=== PATIENT | female | born 1990 | race Caucasian/White ===

== ENCOUNTER → 2016-10-20 | Outpatient (CLI) | payer OTHER | LOC: OD 09:54 | PROVIDERS: ATTEND Nurse Practitioner Primary Care | DX: O20.0 Threatened abortion (principal) | CPT/HCPCS: 36415; 84702 ==

== ENCOUNTER → 2016-10-25 | Outpatient (CLI) | payer OTHER | LOC: OD 10:02 | PROVIDERS: ATTEND Nurse Practitioner Primary Care | DX: O20.0 Threatened abortion (principal) | CPT/HCPCS: 36415; 84702 ==

== ENCOUNTER 2017-06-07 03:02 | Outpatient (CLI) | payer OTHER ==
[2017-06-07] MEDS ORDERED: ACETAMINOPHEN WITH CODEINE #3 TABLET PO ONE (03:55)
[2017-06-07] MEDS ORDERED: HYDROXYZINE PAMOATE 50 MG CAPSULE PO ONE (03:55)
[2017-06-07] MEDS ORDERED: ACETAMINOPHEN WITH CODEINE #3 TABLET ONE (03:57)
[2017-06-07] MEDS ORDERED: HYDROXYZINE PAMOATE 50 MG CAPSULE ONE (03:57)
[2017-06-07 04:18] LABS: APPEARANCE,URINE SLIGHTLY-CLOUDY; BILIRUBIN,URINE NEGATIVE (NEGATIVE); GLUCOSE, URINE NEGATIVE (NEGATIVE); KETONES,URINE NEGATIVE (NEGATIVE); LEUKOCYTE ESTERASE,URINE MODERATE (NEGATIVE); NITRITE,URINE NEGATIVE (NEGATIVE); PROTEIN,URINE NEGATIVE (NEGATIVE); URINE SPECIFIC GRAVITY 1.011; UROBILINOGEN,URINE NEGATIVE mg/dL (<2.0)
[2017-06-07 04:43] LABS: URINE BARBITURATES SCREEN NEGATIVE; URINE METHADONE SCREEN NEGATIVE; URINE OPIATES LOW NEGATIVE; URINE PHENCYCLIDINE SCREEN NEGATIVE
== END 2017-06-07 04:43 | disposition home or self-care (01) ==
LOC: LC 03:02
PROVIDERS: ATTEND Student in an Organized Health Care Education/Training Program
PROC: 4A1HXCZ Monitoring of Products of Conception, Cardiac Rate, External Approach (ICD-10-PCS; principal; 2017-06-07)
DX: O26.893 Other specified pregnancy related conditions, third trimester (principal); M54.9 Dorsalgia, unspecified; Z3A.37 37 weeks gestation of pregnancy
CPT/HCPCS: 59025; 80307; 81005; 87086

== ENCOUNTER 2017-06-28 02:05 | Inpatient (IN) | payer OTHER ==
[2017-06-28] MEDS ORDERED: RINGERS SOLUTION,LACTATED 1,000 ML IV PRN (02:43)
[2017-06-28] MEDS ORDERED: RINGERS SOLUTION,LACTATED 1,000 ML IV ONE (02:43)
[2017-06-28 02:45] LABS: APPEARANCE,URINE SLIGHTLY-CLOUDY; BILIRUBIN,URINE NEGATIVE (NEGATIVE); GLUCOSE, URINE NEGATIVE (NEGATIVE); KETONES,URINE NEGATIVE (NEGATIVE); LEUKOCYTE ESTERASE,URINE TRACE (NEGATIVE); NITRITE,URINE NEGATIVE (NEGATIVE); PROTEIN,URINE 30 mg/dL (NEGATIVE); URINE SPECIFIC GRAVITY 1.014
[2017-06-28 02:59] LABS: URINE BARBITURATES SCREEN NEGATIVE; URINE METHADONE SCREEN NEGATIVE; URINE OPIATES LOW NEGATIVE; URINE PHENCYCLIDINE SCREEN NEGATIVE
[2017-06-28 03:16] LABS: ABSOLUTE EOSINOPHILS # (AUTO) 0.1 10^3/uL (0.0-0.6); ABSOLUTE LYMPHOCYTES (AUTO) 1.7 10^3/uL (0.5-4.7); ABSOLUTE MONOCYTES (AUTO) 0.9 10^3/uL (0.1-1.4); ABSOLUTE NEUT (AUTO) 6.7 10^3/uL (1.7-8.2); BASOPHILS % (AUTO) 0.2 % (0-2); EOSINOPHILS % (AUTO) 1.3 % (0-6); HEMATOCRIT 31.9 % (36.0-47.0); HEMOGLOBIN 11.1 g/dL (12.0-15.5); HGB HCT DIFFERENCE 1.4; LYMPHOCYTES % (AUTO) 17.6 % (13-45); MEAN CORPUSCULAR HEMOGLOBIN 30.2 pg (27.0-33.4); MEAN CORPUSCULAR HGB CONC 34.8 g/dL (32.0-36.0); MEAN CORPUSCULAR VOLUME 87 fl (80-97); MONOCYTES % (AUTO) 9.8 % (3-13); RED BLOOD COUNT 3.68 10^6/uL (3.72-5.28); RED CELL DISTRIBUTION WIDTH 14.8 % (11.5-14.0); SEGMENTED NEUTROPHILS % (AUTO) 71.1 % (42-78); WHITE BLOOD COUNT 9.4 10^3/uL (4.0-10.5)
[2017-06-28] MEDS ORDERED: OXYTOCIN/NORMAL SALINE 20 UNIT/1,000 ML RTUINJ ONE ×2 (05:47→10:27)
[2017-06-28] MEDS ORDERED: OXYTOCIN/NORMAL SALINE 20 UNIT/1,000 ML RTUINJ IV PRN ×2 (05:57→13:11)
--- NOTE | 2017-06-28 08:25 | L&D Progress Notes ---
PROGRESS NOTES Datetime Report Generated by CPN: 06/28/2017 08:24 PROGRESS NOTE Impression: Normal Progression of Labor Plan: Continue Present Management; Augmentation Informed Consent Obtained: Vaginal Delivery Comment: Cat 1 strip, uc's q 2-3 x 60 sec, requesting epidural SIGNATURE SIGNATURE: [id number] SIGNATURE: [id number] Assignment: Hattie Garcia MD Signature: with User ID: [email or web address] : with User ID: [email or web address]
[2017-06-28] MEDS ORDERED: BUPIVACAINE HCL 0.25 % INJ/PF (2.5 MG/1 ML) 30 ML VIAL ONE (08:55)
[2017-06-28] MEDS ORDERED: EPHEDRINE SULFATE INJ 50 MG/1 ML AMPULE ONE (08:55)
[2017-06-28] MEDS ORDERED: FENTANYL/BUPIVACAINE/NS/PF 200 MCG/100 ML RTUINJ EPI ONE (08:55)
[2017-06-28] MEDS ORDERED: MISOPROSTOL 0.2 MG TABLET ONE (10:27)
[2017-06-28] MEDS ORDERED: LIDOCAINE 1% INJ-PF (10 MG/ML) 30 ML SDV ONE (10:27)
--- NOTE | 2017-06-28 11:50 | L&D Progress Notes ---
PROGRESS NOTES Datetime Report Generated by CPN: 06/28/2017 11:50 PROGRESS NOTE Comment: Pt pushing, Dr. Jose in room with pt. plans to deliver her, variable decelerations with pushing, Dr. Jose at [facility] MEMBRANES Membranes: Ruptured Amniotic Fluid Color: Clear FETUS A : 40.3 Presentation: Vertex FETUS C SIGNATURE: [id number] Assignment: Hattie Garcia MD Signature: with User ID: [email or web address] : with User ID: [email or web address]
[2017-06-28] MEDS ORDERED: PROMETHAZINE HCL 25 MG SUPP.RECT PR PRN (13:11)
[2017-06-28] MEDS ORDERED: MAGNESIUM HYDROXIDE SUSP 30 ML UDCUP PO PRN (13:11)
[2017-06-28] MEDS ORDERED: DIPHENHYDRAMINE HCL 25 MG CAPSULE PO PRN (13:11)
[2017-06-28] MEDS ORDERED: PSEUDOEPHEDRINE HCL 30 MG TABLET PO PRN (13:11)
[2017-06-28] MEDS ORDERED: NA PHOS,M-B/NA PHOS,DI-BA (ADULT) 133 ML ENEMA PR PRN (13:11)
[2017-06-28] MEDS ORDERED: BENZOCAINE/MENTHOL AEROSOL SPRAY 56 ML TOP PRN (13:11)
[2017-06-28] MEDS ORDERED: PROMETHAZINE HCL INJ 25 MG/1 ML VIAL IV PRN (13:11)
[2017-06-28] MEDS ORDERED: ZOLPIDEM TARTRATE 5 MG TABLET PO PRN (13:11)
[2017-06-28] MEDS ORDERED: MEASLES,MUMPS&RUBELLA VACC/PF 0.5 ML VIAL SUBCUT PRN (13:11)
[2017-06-28] MEDS ORDERED: ACETAMINOPHEN WITH CODEINE #3 TABLET PO PRN ×2 (13:11)
[2017-06-28] MEDS ORDERED: DIPH/PERTUSS(ACELL)/TETANUS VAC/PF 0.5 ML SYR (>=10YO) IM PRN (13:11)
[2017-06-28] MEDS ORDERED: GLYCERIN/WITCH HAZEL LEAF 1 EACH MED..PAD TP PRN (13:11)
[2017-06-28] MEDS ORDERED: ACETAMINOPHEN 650 MG SUPP.RECT PR PRN (13:11)
[2017-06-28] MEDS ORDERED: DIBUCAINE 1% OINTMENT 28 GM TP PRN (13:11)
[2017-06-28] MEDS ORDERED: PROMETHAZINE HCL 25 MG TABLET PO PRN (13:11)
--- NOTE | 2017-06-28 15:05 | Admission Physical ---
Datetime Report Generated by CPN: 06/28/2017 15:05 CURRENT ADMISSION Hx Assessment: The History has been Reviewed and is Current Chief Complaint: Suspected Ruptured Membranes Indication for Induction: Not Applicable Indication for Induction: Postterm, Intrauterine ; No Active Labor; Ruptured Membranes Admit Plan: Admit to Unit; Initiate Labor Augmentation Protocol ALLERGIES Medication Allergies: No Medication Allergies: No Known Allergies (06/28/2017) Medication Allergies: No Known Allergies (10/09/2014) Latex: No Latex Allergies Food Allergies: none Environmental Allergies: none OBSTETRICAL HISTORY EDC: 06/23/2017 00:00 : 1 Para: 0 Term: 0 : 0 SAB: 0 IAB: 0 Ectopic: 0 Livin Cesareans: 0 VBACs: 0 Multiple Births: 0 Gestational Diabetes: No Rh Sensitization: No Incompetent Cervix: No CRISTIAN: No Infertility: No ART Treatment: No Uterine Anomaly: No IUGR: No Hx Previous C/S: No Macrosomia: No Hx Loss/Stillborn: No PIH: No Hx : No Placenta Previa/Abruption: No Depression/PP Depression: No PTL/PROM: No Post Hemorrhage: No Current Procedures: Ultrasound; NST Obstetrical History Comments: G1- Current SEE RECORDS Alcohol: No Marijuana : No Cocaine: No Other Illicit Drugs: No Cigarettes: Never Smoker. 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 Surgery: No Heart Disease: No Hosp/Surgery: Yes Autoimmune Disorder: No Anesthetic Complications: No Kidney Disease: No Abnormal Pap Smear: No Neuro/Epilepsy: No Psychiatric Disorders: No Other Medical Diseases: No Hepatitis/Liver Disease: No Significant Family History: No Varicosities/Phlebitis: No Trauma/Violence : No Thyroid Dysfunction: No Medical History Comments: 2013 knee surgery INFECTIOUS HISTORY Gonorrhea: No Genital Herpes: No Chlamydia: No Tuberculosis: No Syphilis: No Hepatitis: No HIV/AIDS Exposure: No Rash or Viral Illness: No HPV: No PHYSICAL EXAM General: Normal HEENT: Deferred Neurologic: Normal Thyroid: Normal Heart: Normal Lungs: Normal Breast: Deferred Back: Normal Abdomen: Normal Genitourinary Exam: Normal Extremities: Normal DTRs: Normal Pelvic Type: Adequate Physical Exam Comments: GBS neg Vital Signs: Reviewed MEMBRANES Membranes: Ruptured Amniotic Fluid Color: Clear FETUS A EGA: 40.5 Monitoring: External US Presentation: Vertex Admit Comment: Admitted to with SROM, A +, vs stable, amnisure +, Pitocin started, Cat 1 strip on admission PLANS FOR LABOR AND DELIVERY Labor and Delivery: None Pain Management: Epidural Feeding Preference: Breast Benefit of Breast Feed Discussed: Yes Circumcision: N/A INFORMED CONSENT Informed Consent Obtained: Vaginal Delivery Assignment: Hattie Garcia MD Signature: with User ID: [email or web address] : with User ID: [email or web address]
[2017-06-28] MEDS: IBUPROFEN 800 MG TABLET PO SCH ×2 (15:40→22:06)
[2017-06-28] MEDS: FERROUS SULFATE 325 MG TABLET PO SCH (17:54)
[2017-06-28] MEDS: DOCUSATE SODIUM 100 MG CAPSULE PO SCH (17:55)
[2017-06-28] MEDS: FAMOTIDINE 20 MG TABLET PO SCH (22:06)
[2017-06-29] MEDS: IBUPROFEN 800 MG TABLET PO SCH ×3 (06:00→22:18)
[2017-06-29 07:35] LABS: HEMATOCRIT 28.4 % (36.0-47.0); HEMOGLOBIN 9.7 g/dL (12.0-15.5); HGB HCT DIFFERENCE 0.7; MEAN CORPUSCULAR HGB CONC 34.2 g/dL (32.0-36.0); MEAN CORPUSCULAR VOLUME 88 fl (80-97); RED BLOOD COUNT 3.24 10^6/uL (3.72-5.28); RED CELL DISTRIBUTION WIDTH 14.7 % (11.5-14.0)
--- NOTE | 2017-06-29 08:09 | Delivery Summary ---
Del Sum A-C Datetime Report Generated by CPN: 06/29/2017 08:09 DELIVERY PERSONNEL DELIVERY PERSONNEL: [id number] Delivery Doctor:: Hattie Garcia MD Labor and Delivery Nurse:: Hortensia Gray RN Labor and Delivery Nurse:: Kylie Díaz RN Nursery Nurse:: Shnu ACOSTA Cattyman/CORPORATE ADMINISTRATIVE ASSISTANT: Maryanne Marsh, CHRONIC MANAGER Additional Personnel: : Teresa Gibbs RN MATERNAL INFORMATION Delivery Anesthesia: Epidural Medications After Delivery: Pitocin Bolus-Please Comment; Pitocin Drip 20 Units/1000ml NSS Estimated Blood Loss (ml): 200 Maternal Complications: None LABOR SUMMARY EDC: 06/23/2017 00:00 No. Babies in Womb: 1 Attempted: No Labor Anesthesia: Epidural LABOR INFORMATION Reason for Induction: Premature Rupture of Membranes Onset of Labor: 06/28/2017 06:23 Complete Dilatation: 06/28/2017 11:00 Oxytocin: Augmentation Group B Beta Strep: Negative Steroids Given: None Reason Steroids Not Administered: Not Applicable MEMBRANES Membranes Rupture Method: Spontaneous Rupture of Membranes: 06/28/2017 01:30 Length of Rupture (hr): 11.15 Amniotic Fluid Color: Moderate Meconium Amniotic Fluid Color: Clear Amniotic Fluid Color: Clear Amniotic Fluid Amount: Moderate Amniotic Fluid Odor: Normal STAGES OF LABOR Stage 1 hr: 4 Stage 1 min: 37 Stage 2 hr: 1 Stage 2 min: 39 Stage 3 hr: 0 Stage 3 min: 6 Total Time in Labor hr: 6 Total Time in Labor min: 22 VAGINAL DELIVERY Episiotomy: None Laceration #1: Perineal; Vaginal Laceration Extension #1: Second Degree Laceration #2: Vaginal Laceration Extension #2: Second Degree Laceration #3: Vaginal Laceration Extension #3: Second Degree Laceration Repair: Yes Laceration Repair Note: all repaired in normal fashion with 2-0 chromic Sponge Count Correct: N/A Sharps Count Correct: N/A CSECTION DELIVERY Primary Indication: N/A Secondary Indication: N/A CSection Incidence: N/A Labor: N/A Elective: N/A CSection Incision: N/A BABY A INFORMATION Infant Delivery Date/Time: 06/28/2017 12:39 Method of Delivery: Vaginal Born in Route : No : N/A Forceps: N/A Vacuum Extraction: Successful Shoulder Dystocia : No ASSISTED DELIVERY BABY A Indication for Assisted Delivery: nonreassuring heart tones Catheter Prior to Procedure: No Station Vacuum/Forcep Apply: +3 Position Vacuum/Forcep Apply: Right Occipital Anterior Vacuum Number of Pulls: 1 Vacuum Number of PopOffs: 1 Vacuum Maximum Pressure Obtained: 550 Reduce Pressure btwn Ctx: Yes Vacuum Enterprise Mobility Architect: Kiwi Total Time Vacuum Applied: 10seconds Vacuum/Forceps Comment: Kiwi applied at 1239. PRESENTATION/POSITION BABY A Presentation: Cephalic Cephalic Presentation: Vertex Vertex Position: Right Occipital Anterior Breech Presentation: N/A PLACENTA INFORMATION BABY A Placenta Delivery Time : 06/28/2017 12:45 Placenta Method of Delivery: Spontaneous Placenta Status: Delivered SCORES BABY A Heart Rate 1 min: >100 bpm Resp Effort 1 min: Good Cry Reflex Irritability 1 min: Cough or Sneeze or Pulls Away Muscle Tone 1 min: Active Motion Color 1 min: Blue/Pale Resuscitation Effort 1 min: Tactile Stimulation SCORE 1 MIN: 8 Heart Rate 5 min: >100 bpm Resp Effort 5 min: Good Cry Reflex Irritability 5 min: Cough or Sneeze or Pulls Away Muscle Tone 5 min: Active Motion Color 5 min: Body [place], Extremities Blue Resuscitation Effort 5 min: Tactile Stimulation SCORE 5 MIN: 9 INFORMATION BABY A Gestational Age at Delivery: 40.5 Gestational Status: Full Term- 39- 40.6 Weeks Infant Outcome : Liveborn Infant Condition : Stable Infant Sex: Female IDENTIFICATION BABY A Verification Date/Time: 06/28/2017 12:51 ID Band Number: [id number] Mother's Name Verified: Yes RN Verifying : Emmy Moralesjai ANGELO Additional Verifying Personnel: Susy Gray RN WEIGHT/LENGTH BABY A Infant Birthweight (gm): 3630 Weight (lb): 8 Infant Weight (oz): 0 Length (in): 20.50 Infant Length (cm): 52.07 CORD INFORMATION BABY A No. Cord Vessels: 3 Nuchal Cord : Around Neck x1, Loose Cord Blood Taken: Yes-For Storage (Mom's Blood type +) Infant Suction: Mouth ASSESSMENT BABY A Complications: Multiple Variable Decels Physical Findings at Delivery: Molding of the Head; Other Physical Findings- Other: right compound hand Infant Respirations: Appears Normal Skin to Skin: Yes Skin to Skin: Yes Skin to Skin: Yes Skin to Skin: Yes Skin to Skin: Yes Skin to Skin: Yes Skin to Skin: Yes Skin to Skin: Yes Skin to Skin Time (min): 60 Skin to Skin Time (min): 60 Underwater Hunter/ALS Called : No Infant Care By: Rosalio Gibbs RN Transferred To: Remains with Mother BABY B INFORMATION : N/A SIGNATURES Signature: with User ID: [email or web address]
--- NOTE | 2017-06-29 09:28 | PDOC PROGRESS REPORT ---
Subjective-OB Subjective: Post Delivery Day: 27 year old. Denies any needs at this time. Pt doing well, no complaints. She reports light bleeding, voiding without difficulty. Physical Exam (OB) Vital Signs: Temp Pulse Resp BP Pulse Ox 98.0 F 91 14 129/72 H 98 06/29/17 07:39 06/29/17 07:39 06/29/17 07:39 06/29/17 07:39 06/29/17 07:39 Intake & Output 06/28/17 06/29/17 06/30/17 06:59 06:59 06:59 Weight 117.95 kg - PIH/Pre-Eclampsia Clonus: Negative Headache: Absent Epigastric Pain: No Visual Changes: No - Lochia Lochia Amount: Small 10-25 ml Lochia Color: Rubra/Red - Abdomen Description: Tender, Soft, Round Hernia Present: No Fundal Description: Firm Fundal Height: u/u - u/2 Objective-Diagnostic Laboratory: 06/29/17 07:05 06/29/17 07:05 WBC 11.0 H RBC 3.24 L Hgb 9.7 L Hct 28.4 L MCV 88 MCH 30.0 MCHC 34.2 RDW 14.7 H Plt Count 132 L Assessment and Plan(PN) - Assessment and Plan (1) Vaginal delivery Is this a current diagnosis for this admission?: Yes - Time Spent with Patient Time with patient: Less than 15 minutes Medications reviewed and adjusted accordingly: Yes - Disposition Anticipated Discharge: Home Within: within 24 hours
[2017-06-29] MEDS: FAMOTIDINE 20 MG TABLET PO SCH ×2 (12:32→22:18)
[2017-06-29] MEDS: FERROUS SULFATE 325 MG TABLET PO SCH ×2 (12:32→18:32)
[2017-06-29] MEDS: DOCUSATE SODIUM 100 MG CAPSULE PO SCH ×2 (12:32→18:32)
[2017-06-29] MEDS: PRENATAL VITAMIN W DHA CAPSULE PO SCH (12:33)
[2017-06-29] MEDS: SENNOSIDES/DOCUSATE 8.6-50 MG 1 EACH TABLET PO SCH (12:33)
[2017-06-29] MEDS ORDERED: IBUPROFEN 800 MG TABLET ONE (15:35)
[2017-06-30] MEDS: IBUPROFEN 800 MG TABLET PO SCH (05:33)
[2017-06-30 08:25] VITALS: BP 99/79
--- NOTE | 2017-06-30 08:34 | PDOC PROGRESS REPORT ---
Subjective-OB Subjective: Post Delivery Day: 27 year old. Denies any needs at this time. Ready to go home. Physical Exam (OB) Vital Signs: Temp Pulse Resp BP Pulse Ox 97.8 F 82 16 99/79 L 100 06/30/17 07:32 06/30/17 07:32 06/30/17 07:32 06/30/17 07:32 06/30/17 07:32 - PIH/Pre-Eclampsia Clonus: Negative Headache: Absent Epigastric Pain: No Visual Changes: No - Lochia Lochia Amount: Small 10-25 ml Lochia Color: Rubra/Red - Abdomen Description: Tender, Soft Hernia Present: No Bowel Sounds: Normoactive Flatus Presence: Present Stool: No Fundal Description: Firm, Midline Fundal Height: u/u - u/2 Objective-Diagnostic Laboratory: 06/29/17 07:05 Assessment and Plan(PN) - Time Spent with Patient Medications reviewed and adjusted accordingly: Yes - Disposition Anticipated Discharge: Home
--- NOTE | 2017-06-30 08:42 | PDOC DISCHARGE SUMMARY ---
Final Diagnosis Discharge Date: 06/30/17 - Final Diagnosis (1) Is this a current diagnosis for this admission?: Yes (2) Vaginal delivery Is this a current diagnosis for this admission?: Yes (3) Vitamin D deficiency Is this a current diagnosis for this admission?: Yes Discharge Data - Discharge Medication Home Medications: Ergocalciferol (Vitamin D2) [Vitamin D] 400 unit PO DAILY MDD 1 tab 06/07/17 Pnv No.103/Folic/Om3s/Fish Oil [ Gummies] 1 each PO DAILY MDD 1 tab Docusate Sodium [Colace 100 mg Capsule] 100 mg PO BID #30 capsule 06/30/17 Ferrous Sulfate [Feosol 325 mg Tablet] 325 mg PO BID #60 tablet 06/30/17 Gestational Age: 40.5 wks Reason(s) for Admission: PROM Procedures: Ultrasound Intrapartum Procedure(s): Spontaneous Vaginal Delivery Complication(s): Laceration-Vaginal, Laceration-Perineal Laceration-Degree: 2nd - Mellette Data Baby 1 Female at 1 minute: 8 at 5 minutes: 9 Weight: 3.629 kg Home with Mother: Yes Complications: No - Diagnosis Test Laboratory: Temp Pulse Resp BP Pulse Ox 97.8 F 82 16 99/79 L 100 06/30/17 07:32 06/30/17 07:32 06/30/17 07:32 06/30/17 07:32 06/30/17 07:32 06/28/17 06/28/17 06/29/17 02:29 03:02 07:05 RBC 3.68 L 3.24 L Hgb 11.1 L 9.7 L Hct 31.9 L 28.4 L Urine Opiates Screen NEGATIVE - Discharge information/Instructions Discharge Activity: Activity As Tolerated, Balance Activity w/Rest, Pelvic Rest , Slowly Increase Activity, No tub bath Discharge Diet: Regular Disposition: HOME, SELF-CARE Follow up with: [facility] in: 4, Weeks
[2017-06-30] MEDS: SENNOSIDES/DOCUSATE 8.6-50 MG 1 EACH TABLET PO SCH (09:52)
[2017-06-30] MEDS: FERROUS SULFATE 325 MG TABLET PO SCH (09:52)
[2017-06-30] MEDS: DOCUSATE SODIUM 100 MG CAPSULE PO SCH (09:52)
[2017-06-30] MEDS: FAMOTIDINE 20 MG TABLET PO SCH (09:53)
[2017-06-30] MEDS: PRENATAL VITAMIN W DHA CAPSULE PO SCH (09:53)
== END 2017-06-30 12:12 | disposition home or self-care (01) | DRG 775 ==
LOC: LC 02:05 → LR 02:30 → 2S 15:02
PROVIDERS: ADMIT Obstetrics & Gynecology; ATTEND Obstetrics & Gynecology
PROC: 10D07Z6 Extraction of Products of Conception, Vacuum, Via Natural or Artificial Opening (ICD-10-PCS; principal; 2017-06-28)
PROC: 0KQM0ZZ Repair Perineum Muscle, Open Approach (ICD-10-PCS; 2017-06-28)
PROC: 4A1HXCZ Monitoring of Products of Conception, Cardiac Rate, External Approach (ICD-10-PCS; 2017-06-28)
DX: O48.0 Post-term pregnancy (principal); O76 Abnormality in fetal heart rate and rhythm complicating labor and delivery; O32.6XX0 Maternal care for compound presentation, not applicable or unspecified; O70.1 Second degree perineal laceration during delivery; O42.02 Full-term premature rupture of membranes, onset of labor within 24 hours of rupture; O99.284 Endocrine, nutritional and metabolic diseases complicating childbirth; E55.9 Vitamin D deficiency, unspecified; O77.0 Labor and delivery complicated by meconium in amniotic fluid; Z3A.40 40 weeks gestation of pregnancy; Z37.0 Single live birth
CPT/HCPCS: 36415; 80307; 81005; 85025; 85027; 86592; 86850; 86900; 86901; J2590; J3490

== ENCOUNTER → 2018-07-31 | Outpatient (CLI) | payer OTHER | LOC: OD 14:21 | PROVIDERS: ATTEND Nurse Practitioner Primary Care | DX: N91.2 Amenorrhea, unspecified (principal) | CPT/HCPCS: 36415; 84702 ==

== ENCOUNTER 2019-09-09 16:00 | Outpatient (CLI) | payer MEDICAID ==
[2019-09-09 16:51] LABS: APPEARANCE,URINE SLIGHTLY-CLOUDY; BILIRUBIN,URINE NEGATIVE (NEGATIVE); COLOR,URINE YELLOW; GLUCOSE, URINE NEGATIVE (NEGATIVE); KETONES,URINE 20 mg/dL (NEGATIVE); LEUKOCYTE ESTERASE,URINE TRACE (NEGATIVE); NITRITE,URINE NEGATIVE (NEGATIVE); PROTEIN,URINE 30 mg/dL (NEGATIVE); URINE SPECIFIC GRAVITY 1.021
[2019-09-09 17:18] LABS: URINE AMPHETAMINES SCREEN NEGATIVE; URINE BARBITURATES SCREEN NEGATIVE; URINE BENZODIAZEPINES SCREEN NEGATIVE; URINE COCAINE SCREEN NEGATIVE; URINE MARIJUANA (THC) SCREEN NEGATIVE; URINE METHADONE SCREEN NEGATIVE; URINE PHENCYCLIDINE SCREEN NEGATIVE
--- NOTE | 2019-09-09 18:55 | Non Stress Test Report ---
Non Stress Test Datetime Report Generated by CPN: 09/09/2019 18:55 DEMOGRAPHIC EGA NST: 39.6 MONITORING Monitor Explained: Monitor Explained; Test Explained; Patient Verbalized Understanding Time on Monitor: 09/09/2019 16:50 Time off Monitor: 09/09/2019 17:24 NST Duration: 34 NST INTERVENTIONS NST Interventions: None Physician Notified NST: Dr. Topete Physician Notified NST: Dr Topete BABY A: [id number] Movement : Present Movement : Present Contraction Frequency : irregular FHR Baseline : 125 FHR Baseline : 125 Accelerations : 15X15 Decelerations : None Variability : Moderate 6-25bpm NST Review: Meets Criteria for Reactive NST NST Review: Meets Criteria for Reactive NST NST Review and Verified By : Henry Cheney RN NST Results: Reactive NST Results: Reactive NST REPORT Report Trigger: Send Report
== END 2019-09-09 18:48 | disposition home or self-care (01) ==
LOC: LC 16:00
PROVIDERS: ATTEND Student in an Organized Health Care Education/Training Program
PROC: 4A1HXCZ Monitoring of Products of Conception, Cardiac Rate, External Approach (ICD-10-PCS; principal; 2019-09-09)
DX: O47.1 False labor at or after 37 completed weeks of gestation (principal); Z3A.39 39 weeks gestation of pregnancy
CPT/HCPCS: 59025; 80307; 81005; 84112

== ENCOUNTER 2019-09-13 01:31 | Outpatient (CLI) | payer MEDICAID ==
[2019-09-13 02:05] LABS: APPEARANCE,URINE SLIGHTLY-CLOUDY; BILIRUBIN,URINE NEGATIVE (NEGATIVE); COLOR,URINE YELLOW; GLUCOSE, URINE NEGATIVE (NEGATIVE); KETONES,URINE NEGATIVE (NEGATIVE); LEUKOCYTE ESTERASE,URINE LARGE (NEGATIVE); NITRITE,URINE NEGATIVE (NEGATIVE); PROTEIN,URINE NEGATIVE (NEGATIVE); URINE SPECIFIC GRAVITY 1.014; UROBILINOGEN,URINE NEGATIVE mg/dL (<2.0)
[2019-09-13 02:26] LABS: URINE AMPHETAMINES SCREEN NEGATIVE; URINE BARBITURATES SCREEN NEGATIVE; URINE BENZODIAZEPINES SCREEN NEGATIVE; URINE COCAINE SCREEN NEGATIVE; URINE MARIJUANA (THC) SCREEN NEGATIVE; URINE METHADONE SCREEN NEGATIVE; URINE PHENCYCLIDINE SCREEN NEGATIVE
--- NOTE | 2019-09-13 05:46 | Non Stress Test Report ---
Non Stress Test Datetime Report Generated by CPN: 09/13/2019 04:02 DEMOGRAPHIC EGA NST: 40.3 INDICATION Indication for Study (NST) Other: LC- contractions MONITORING Monitor Explained: Monitor Explained; Test Explained; Patient Verbalized Understanding Time on Monitor: 09/13/2019 01:42 Time off Monitor: 09/13/2019 02:23 NST Duration: 41 NST INTERVENTIONS NST Interventions: PO Hydration; Reposition Patient Physician Notified NST: Dr. Younger BABY A: [id number] BABY A Contraction Frequency : irregular FHR Baseline : 120 Accelerations : 15X15 Decelerations : None Variability : Moderate 6-25bpm NST Review: Meets Criteria for Reactive NST NST Review and Verified By : , RN NST Results: Reactive NST REPORT Report Trigger: Send Report
== END 2019-09-13 04:04 | disposition home or self-care (01) ==
LOC: LC 01:31
PROVIDERS: ATTEND Obstetrics & Gynecology
PROC: 4A1HXCZ Monitoring of Products of Conception, Cardiac Rate, External Approach (ICD-10-PCS; principal; 2019-09-13)
DX: Z34.93 Encounter for supervision of normal pregnancy, unspecified, third trimester (principal)
CPT/HCPCS: 59025; 80307; 81005; 84112

== ENCOUNTER 2019-09-13 10:09 | Outpatient (CLI) | payer MEDICAID ==
[2019-09-13 11:28] LABS: APPEARANCE,URINE SLIGHTLY-CLOUDY; BILIRUBIN,URINE NEGATIVE (NEGATIVE); COLOR,URINE YELLOW; GLUCOSE, URINE NEGATIVE (NEGATIVE); KETONES,URINE NEGATIVE (NEGATIVE); LEUKOCYTE ESTERASE,URINE TRACE (NEGATIVE); NITRITE,URINE NEGATIVE (NEGATIVE); PROTEIN,URINE NEGATIVE (NEGATIVE); URINE SPECIFIC GRAVITY 1.017; UROBILINOGEN,URINE NEGATIVE mg/dL (<2.0)
[2019-09-13 11:48] LABS: URINE BARBITURATES SCREEN NEGATIVE; URINE BENZODIAZEPINES SCREEN NEGATIVE; URINE COCAINE SCREEN NEGATIVE; URINE MARIJUANA (THC) SCREEN NEGATIVE; URINE METHADONE SCREEN NEGATIVE; URINE PHENCYCLIDINE SCREEN NEGATIVE
[2019-09-13 11:53] LABS: URINE AMPHETAMINES SCREEN NEGATIVE
== END 2019-09-13 12:46 | disposition home or self-care (01) ==
LOC: LC 10:09
PROVIDERS: ATTEND Student in an Organized Health Care Education/Training Program
PROC: 4A1HXCZ Monitoring of Products of Conception, Cardiac Rate, External Approach (ICD-10-PCS; principal; 2019-09-13)
DX: O48.0 Post-term pregnancy (principal); Z3A.40 40 weeks gestation of pregnancy
CPT/HCPCS: 59025; 80307; 81005

== ENCOUNTER 2019-09-13 16:11 | Inpatient (IN) | payer MEDICAID ==
--- NOTE | 2019-09-13 16:19 | Non Stress Test Report ---
Non Stress Test Datetime Report Generated by CPN: 09/13/2019 16:19 DEMOGRAPHIC EGA NST: 40.3 INDICATION Indication for Study (NST) Other: false labor VITAL SIGNS Temperature - NST: 98.2 Pulse - NST: 97 RESP - NST: 16 NBPSYS NST: 98 NBPDIA NST: 49 MONITORING Monitor Explained: Monitor Explained; Test Explained; Patient Verbalized Understanding Time on Monitor: 09/13/2019 10:24 Time off Monitor: 09/13/2019 12:29 NST Duration: 125 NST INTERVENTIONS NST Interventions: PO Hydration; Reposition Patient Physician Notified NST: P. Godinez CNM on unit, reviewed fht BABY A Movement : Present Contraction Frequency : 4-5 FHR Baseline : 140 Accelerations : 15X15 Decelerations : None Variability : Moderate 6-25bpm NST Review: Meets Criteria for Reactive NST NST Review and Verified By : Coleen Lozano RN NST Results: Reactive NST REPORT Report Trigger: Send Report
[2019-09-13] MEDS ORDERED: OXYTOCIN 10 UNIT/ML VIAL ONE (16:40)
[2019-09-13] MEDS ORDERED: MISOPROSTOL 0.2 MG TABLET ONE (16:40)
[2019-09-13] MEDS ORDERED: LIDOCAINE 1% INJ-PF (10 MG/ML) 30 ML SDV ONE (16:41)
[2019-09-13] MEDS ORDERED: OXYTOCIN/NORMAL SALINE 20 UNIT/1,000 ML RTUINJ ONE (16:41)
--- NOTE | 2019-09-13 16:54 | Admission Physical ---
Datetime Report Generated by CPN: 09/13/2019 16:54 CURRENT ADMISSION Chief Complaint: Uterine Contractions Indication for Induction: Not Applicable Admit Impression : Term, Intrauterine ; Active Labor Admit Plan: Admit to Unit; Initiate Labor Protocol ALLERGIES Medication Allergies: No Medication Allergies: No Known Allergies (09/13/2019) Latex: No Latex Allergies Food Allergies: none Environmental Allergies: none OBSTETRICAL HISTORY EDC: 09/10/2019 00:00 : 2 Para: 1 Term: 1 : 0 SAB: 0 IAB: 0 Ectopic: 0 Livin Cesareans: 0 Multiple Births: 0 Gestational Diabetes: No Rh Sensitization: No Incompetent Cervix: No CRISTIAN: No Infertility: No ART Treatment: No Uterine Anomaly: Yes IUGR: No Hx Previous C/S: No Macrosomia: No Hx Loss/Stillborn: No PIH: No Hx : No Placenta Previa/Abruption: No Depression/PP Depression: No PTL/PROM: No Post Hemorrhage: No Current Procedures: Ultrasound Obstetrical History Comments: G1- , 2016 G2- Current SEE RECORDS Alcohol: No Marijuana : No Cocaine: No Other Illicit Drugs: No Cigarettes: Never Smoker. 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: No Heart Disease: No Hosp/Surgery: Yes Autoimmune Disorder: No Anesthetic Complications: No Kidney Disease: No Abnormal Pap Smear: No Neuro/Epilepsy: No Psychiatric Disorders: No Other Medical Diseases: No Hepatitis/Liver Disease: No Significant Family History: No Varicosities/Phlebitis: No Trauma/Violence : No Thyroid Dysfunction: No Medical History Comments: L knee surgery othroscopic 2012 INFECTIOUS HISTORY Gonorrhea: No Genital Herpes: No Chlamydia: No Tuberculosis: No Syphilis: No Hepatitis: No HIV/AIDS Exposure: No Rash or Viral Illness: No HPV: No PHYSICAL EXAM General: Normal HEENT: Normal Neurologic: Normal Thyroid: Deferred Heart: Normal Lungs: Normal Breast: Deferred Back: Normal Abdomen: Normal Genitourinary Exam: Deferred Extremities: Normal DTRs: Normal Pelvic Type: Adequate Vital Signs: Reviewed; Within Normal Limits VAGINAL EXAM Dilatation: 5 Effacement: 80 Station: -1 MEMBRANES Membranes: Intact FETUS A EGA: 40.3 Monitoring: External US FHR- Baseline: 135 Variability: Moderate 6-25bpm Accelerations: 15X15 FHR Category: Category I Presentation: Vertex Admit Comment: Proven for 8lbs 1oz High weight gain of 50 lbs Antepartum records reviewed Plan: Anticipate PLANS FOR LABOR AND DELIVERY Labor and Delivery: None Pain Management: Epidural Feeding Preference: Breast Circumcision: Yes INFORMED CONSENT Assignment: Franchesca Topete MD Signature: with User ID: [email or web address] : with User ID: Mane : I personally evaluated and examined the patient in conjunction with the MLP and agree with the assessment, treatment plan and disposition.
[2019-09-13 17:19] LABS: ABSOLUTE BASOPHILS # (AUTO) 0.1 10^3/uL (0.0-0.2); ABSOLUTE EOSINOPHILS # (AUTO) 0.1 10^3/uL (0.0-0.6); ABSOLUTE LYMPHOCYTES (AUTO) 1.3 10^3/uL (0.5-4.7); ABSOLUTE NEUT (AUTO) 8.3 10^3/uL (1.7-8.2); BASOPHILS % (AUTO) 0.6 % (0-2); EOSINOPHILS % (AUTO) 0.6 % (0-6); HEMATOCRIT 33.3 % (36.0-47.0); HEMOGLOBIN 11.7 g/dL (12.0-15.5); LYMPHOCYTES % (AUTO) 12.1 % (13-45); MEAN CORPUSCULAR HEMOGLOBIN 30.1 pg (27.0-33.4); MEAN CORPUSCULAR HGB CONC 35.3 g/dL (32.0-36.0); MEAN CORPUSCULAR VOLUME 85 fl (80-97); PLATELET COUNT 171 10^3/uL (150-450); RED CELL DISTRIBUTION WIDTH 14.4 % (11.5-14.0); SEGMENTED NEUTROPHILS % (AUTO) 77.7 % (42-78); TOTAL CELLS COUNTED % (AUTO) 100 %; WHITE BLOOD COUNT 10.7 10^3/uL (4.0-10.5)
[2019-09-13] MEDS ORDERED: FENTANYL CITRATE INJ/PF 100 MCG/2 ML AMPUL ONE (17:57)
[2019-09-13] MEDS ORDERED: EPHEDRINE SULFATE INJ 50 MG/1 ML AMPULE ONE (17:57)
[2019-09-13] MEDS ORDERED: BUPIVACAINE HCL 0.25 % INJ/PF (2.5 MG/1 ML) 30 ML VIAL ONE (17:58)
[2019-09-13] MEDS ORDERED: FENTANYL/BUPIVACAINE/NS/PF 300 MCG/150 ML RTUINJ EPI ONE (17:58)
[2019-09-13] MEDS ORDERED: OXYTOCIN/NORMAL SALINE 20 UNIT/1,000 ML RTUINJ IV PRN (20:30)
[2019-09-14] MEDS ORDERED: METHYLERGONOVINE MALEATE INJ/PF 0.2 MG/1 ML AMPULE ONE (00:49)
[2019-09-14] MEDS ORDERED: MISOPROSTOL 0.2 MG TABLET ONE ×2 (00:50→01:02)
[2019-09-14] MEDS ORDERED: ACETAMINOPHEN WITH CODEINE #3 TABLET PO PRN ×2 (01:08)
[2019-09-14] MEDS ORDERED: PROMETHAZINE HCL 25 MG SUPP.RECT PR PRN (01:08)
[2019-09-14] MEDS ORDERED: OXYTOCIN/NORMAL SALINE 20 UNIT/1,000 ML RTUINJ IV PRN (01:08)
[2019-09-14] MEDS ORDERED: DIPH/PERTUSS(ACELL)/TETANUS VAC/PF 0.5 ML SYR (>=10YO) IM PRN (01:08)
[2019-09-14] MEDS ORDERED: BENZOCAINE/MENTHOL AEROSOL SPRAY 56 ML TOP PRN (01:08)
[2019-09-14] MEDS ORDERED: MAGNESIUM HYDROXIDE SUSP 30 ML UDCUP PO PRN (01:08)
[2019-09-14] MEDS ORDERED: DIBUCAINE 1% OINTMENT 28 GM TP PRN (01:08)
[2019-09-14] MEDS ORDERED: NA PHOS,M-B/NA PHOS,DI-BA (ADULT) 133 ML ENEMA PR PRN (01:08)
[2019-09-14] MEDS ORDERED: ACETAMINOPHEN 325 MG TABLET PO PRN (01:08)
[2019-09-14] MEDS ORDERED: PROMETHAZINE HCL INJ 25 MG/1 ML VIAL IV PRN (01:08)
[2019-09-14] MEDS ORDERED: DIPHENHYDRAMINE HCL 25 MG CAPSULE PO PRN (01:08)
[2019-09-14] MEDS ORDERED: MEASLES,MUMPS&RUBELLA VACC/PF 0.5 ML VIAL SUBCUT PRN (01:08)
[2019-09-14] MEDS ORDERED: ZOLPIDEM TARTRATE 5 MG TABLET PO PRN (01:08)
[2019-09-14] MEDS ORDERED: GLYCERIN/WITCH HAZEL LEAF 1 EACH MED..WIPE TP PRN (01:08)
[2019-09-14] MEDS ORDERED: PSEUDOEPHEDRINE HCL 30 MG TABLET PO PRN (01:08)
[2019-09-14] MEDS ORDERED: PROMETHAZINE HCL 25 MG TABLET PO PRN (01:08)
[2019-09-14] MEDS ORDERED: INFLUENZA QUAD (6MOS+) 2019-20 VAC 0.5 ML SYR IM ONE (04:01)
[2019-09-14] MEDS: DOCUSATE SODIUM 100 MG CAPSULE PO SCH ×2 (09:28→17:58)
[2019-09-14] MEDS: SENNOSIDES/DOCUSATE 8.6-50 MG 1 EACH TABLET PO SCH (09:28)
[2019-09-14] MEDS: PRENATAL VITAMIN W DHA CAPSULE PO SCH (09:28)
[2019-09-14] MEDS: FERROUS SULFATE 325 MG TABLET PO SCH ×2 (09:28→17:58)
[2019-09-14] MEDS: FAMOTIDINE 20 MG TABLET PO SCH ×2 (09:28→21:23)
--- NOTE | 2019-09-14 09:43 | PDOC PROGRESS REPORT ---
Subjective-OB Progress Note for:: 09/14/19 Subjective: Pt doing well, delivery <24 hrs, reports bleeding is normal without clots, has been up to void, reg diet, no concerns. Physical Exam (OB) Vital Signs: Temp Pulse Resp BP Pulse Ox 97.9 F 83 12 106/54 L 96 09/14/19 08:18 09/14/19 08:18 09/14/19 08:18 09/14/19 08:18 09/14/19 08:18 Intake & Output 09/13/19 09/14/19 09/15/19 06:59 06:59 06:59 Weight 123.6 kg - Abdomen Description: Soft Fundal Description: Firm Fundal Height: u/u - u/2 Objective-Diagnostic Laboratory: 09/13/19 17:05 09/13/19 09/13/19 17:05 17:05 WBC 10.7 H RBC 3.90 Hgb 11.7 L Hct 33.3 L MCV 85 MCH 30.1 MCHC 35.3 RDW 14.4 H Plt Count 171 Seg Neutrophils % 77.7 Blood Type A POSITIVE Antibody Screen NEGATIVE Assessment and Plan(PN) - Assessment and Plan (1) Active labor at term Is this a current diagnosis for this admission?: Yes (2) Encounter for vaginal delivery Is this a current diagnosis for this admission?: Yes (3) Meconium in amniotic fluid Is this a current diagnosis for this admission?: Yes (4) Obstetrical laceration, second degree Is this a current diagnosis for this admission?: Yes - Time Spent with Patient Time with patient: Less than 15 minutes Medications reviewed and adjusted accordingly: Yes - Disposition Anticipated Discharge: Home Within: within 48 hours
[2019-09-14] MEDS: IBUPROFEN 800 MG TABLET PO SCH ×2 (13:04→21:23)
[2019-09-15] MEDS: IBUPROFEN 800 MG TABLET PO SCH (06:53)
[2019-09-15 07:56] LABS: HEMATOCRIT 32.5 % (36.0-47.0); MEAN CORPUSCULAR HEMOGLOBIN 29.2 pg (27.0-33.4); MEAN CORPUSCULAR HGB CONC 33.7 g/dL (32.0-36.0); MEAN CORPUSCULAR VOLUME 87 fl (80-97); PLATELET COUNT 150 10^3/uL (150-450); RED BLOOD COUNT 3.75 10^6/uL (3.72-5.28); RED CELL DISTRIBUTION WIDTH 14.3 % (11.5-14.0); WHITE BLOOD COUNT 9.5 10^3/uL (4.0-10.5)
[2019-09-15 08:35] VITALS: BP 107/65
--- NOTE | 2019-09-15 09:31 | PDOC DISCHARGE SUMMARY ---
Impression - Admit/DC Date/PCP Admission Date/Primary Care Provider: 09/13/19 16:36 EL LIVINGSTON MD Discharge Date: 09/15/19 - Discharge Diagnosis (1) Active labor at term Is this a current diagnosis for this admission?: Yes (2) Encounter for vaginal delivery Is this a current diagnosis for this admission?: Yes (3) Meconium in amniotic fluid Is this a current diagnosis for this admission?: Yes (4) Obstetrical laceration, second degree Is this a current diagnosis for this admission?: Yes - Additional Information Resuscitation Status: Full Code Discharge Diet: Regular Discharge Activity: Balance Activity w/Rest, Pelvic Rest Referrals: [facility] [Provider Group] Home Medications: Pnv No.103/Folic/Om3s/Fish Oil [ Gummies] 1 each PO DAILY MDD 1 tab 06/07/17 Results Laboratory Results: WBC 9.5 10^3/uL (4.0-10.5) 09/15/19 06:43 RBC 3.75 10^6/uL (3.72-5.28) 09/15/19 06:43 Hgb 11.0 g/dL (12.0-15.5) L 09/15/19 06:43 Hct 32.5 % (36.0-47.0) L 09/15/19 06:43 MCV 87 fl (80-97) 09/15/19 06:43 MCH 29.2 pg (27.0-33.4) 09/15/19 06:43 MCHC 33.7 g/dL (32.0-36.0) 09/15/19 06:43 RDW 14.3 % (11.5-14.0) H 09/15/19 06:43 Plt Count 150 10^3/uL (150-450) 09/15/19 06:43 Lymph % (Auto) 12.1 % (13-45) L 09/13/19 17:05 [place] % (Auto) 9.0 % (3-13) 09/13/19 17:05 Eos % (Auto) 0.6 % (0-6) 09/13/19 17:05 Baso % (Auto) 0.6 % (0-2) 09/13/19 17:05 Absolute Neuts (auto) 8.3 10^3/uL (1.7-8.2) H 09/13/19 17:05 Absolute Lymphs (auto) 1.3 10^3/uL (0.5-4.7) 09/13/19 17:05 Absolute Monos (auto) 1.0 10^3/uL (0.1-1.4) 09/13/19 17:05 Absolute Eos (auto) 0.1 10^3/uL (0.0-0.6) 09/13/19 17:05 Absolute Basos (auto) 0.1 10^3/uL (0.0-0.2) 09/13/19 17:05 Seg Neutrophils % 77.7 % (42-78) 09/13/19 17:05 RPR NONREACTIVE (NONREACTIVE) 09/13/19 17:05 Blood Type A POSITIVE 09/13/19 17:05 Antibody Screen NEGATIVE 09/13/19 17:05
[2019-09-15] MEDS: PRENATAL VITAMIN W DHA CAPSULE PO SCH (09:59)
[2019-09-15] MEDS: DOCUSATE SODIUM 100 MG CAPSULE PO SCH (10:00)
[2019-09-15] MEDS: FAMOTIDINE 20 MG TABLET PO SCH (10:00)
[2019-09-15] MEDS: SENNOSIDES/DOCUSATE 8.6-50 MG 1 EACH TABLET PO SCH (10:01)
[2019-09-15] MEDS: FERROUS SULFATE 325 MG TABLET PO SCH (10:01)
[2019-09-15] MEDS ORDERED: DIPH/PERTUSS(ACELL)/TETANUS VAC/PF 0.5 ML SYR (>=10YO) IM ONE (10:54)
--- NOTE | 2019-09-19 08:58 | Delivery Summary ---
Del Sum A-C Datetime Report Generated by CPN: 09/19/2019 08:58 DELIVERY PERSONNEL DELIVERY PERSONNEL: [id number] Delivery Doctor:: Franchesca Topete MD Labor and Delivery Nurse:: Cuca Thacker RN Nursery Nurse:: Twila Olivo RN Hand Coremaker/SPANISH LINGUIST: Betty Swain, ECONOMIC FORECASTER MATERNAL INFORMATION Delivery Anesthesia: Epidural Medications After Delivery: Pitocin Bolus-Please Comment; Methergine 0.2mg IM; Cytotec 1000mcg Per Rectum/Vagina Meds After Delivery Comment: Pitocin 20 units/1000 ml NSS Estimated Blood Loss (ml): 200 Maternal Complications: None Provider Comments: VMI delivered in direct OP presentation. No nuchal cord. Shoulders and body delivered without difficulty. Cord doubly clamped and cut and intant to maternal abdomen for NRP. Placenta delivered intact spontaneously. 2nd degree perineal laceration repaired with good hemostasis. ALENA with atony - 0.2mg methergine given into the ALENA. Cytotec 1000mcg given per rectum. mother and baby stable upon provider leaving the room. LABOR SUMMARY EDC: 09/10/2019 00:00 No. Babies in Womb: 1 Attempted: No Labor Anesthesia: Epidural LABOR INFORMATION Reason for Induction: Not Applicable Onset of Labor: 09/13/2019 16:52 Complete Dilatation: 09/14/2019 00:08 Oxytocin: Augmentation Group B Beta Strep: Negative Antibiotics # of Doses: 0 Steroids Given: None Reason Steroids Not Administered: Not Applicable MEMBRANES Membranes Rupture Method: Artificial Rupture of Membranes: 09/14/2019 00:08 Length of Rupture (hr): 0.53 Amniotic Fluid Color: Light Meconium Amniotic Fluid Amount: Moderate STAGES OF LABOR Stage 1 hr: 7 Stage 1 min: 16 Stage 2 hr: 0 Stage 2 min: 32 Stage 3 hr: 0 Stage 3 min: 4 Total Time in Labor hr: 7 Total Time in Labor min: 52 VAGINAL DELIVERY Episiotomy: None Laceration #1: Perineal Laceration Extension #1: Second Degree Laceration Repair: Yes Laceration Repair Note: 2nd degree perineal laceration repaired in usual fashion. Sponge Count Correct: Yes Sharps Count Correct: Yes CSECTION DELIVERY Primary Indication: N/A Secondary Indication: N/A CSection Incidence: N/A Labor: N/A Elective: N/A CSection Incision: N/A BABY A INFORMATION Delivery Date/Time: 09/14/2019 00:40 Method of Delivery: Vaginal Method of Delivery: Vaginal Nurse Controlled Delivery: No Born in Route : No : N/A Forceps: N/A Vacuum Extraction: N/A Shoulder Dystocia : No PRESENTATION/POSITION BABY A Presentation: Cephalic Cephalic Presentation: Vertex Vertex Position: OP Breech Presentation: N/A PLACENTA INFORMATION BABY A Placenta Delivery Time : 09/14/2019 00:44 Placenta Method of Delivery: Spontaneous Placenta Method of Delivery: Spontaneous Placenta Status: Delivered SCORES BABY A Heart Rate 1 min: >100 bpm Resp Effort 1 min: Good Cry Reflex Irritability 1 min: Cough or Sneeze or Pulls Away Muscle Tone 1 min: Active Motion Color 1 min: Body [place], Extremities Blue Resuscitation Effort 1 min: Tactile Stimulation SCORE 1 MIN: 9 Heart Rate 5 min: >100 bpm Resp Effort 5 min: Good Cry Reflex Irritability 5 min: Cough or Sneeze or Pulls Away Muscle Tone 5 min: Active Motion Color 5 min: Body [place], Extremities Blue Resuscitation Effort 5 min: Tactile Stimulation SCORE 5 MIN: 9 INFANT INFORMATION BABY A Gestational Age at Delivery: 40.4 Gestational Status: Full Term- 39- 40.6 Weeks Infant Outcome : Liveborn Infant Condition : Stable Sex: Male Sex: Male IDENTIFICATION BABY A Infant Verification Date/Time: 09/14/2019 00:53 ID Band Number: [id number] Mother's Name Verified: Yes Infant RN Verifying : CLeslie Thacker, RN Additional Verifying Personnel: SLeslie Swain, E[employer]OMIC FORE[employer]STER WEIGHT/LENGTH BABY A Birthweight (gm): 4162 Infant Weight (lb): 9 Infant Weight (oz): 3 Length (in): 21.00 Infant Length (cm): 53.34 CORD INFORMATION BABY A No. Cord Vessels: 3 Cord Blood Taken: Yes-For Storage (Mom's Blood type +) Infant Suction: Mouth ASSESSMENT BABY A Skin to Skin: Yes Skin to Skin Time (min): 60 SIGNATURES Signature: with User ID: [email or web address] : Les personally evaluated and examined the patient in conjunction with the MLP and agree with the assessment, treatment plan and disposition.
== END 2019-09-15 13:50 | disposition home or self-care (01) | DRG 807 ==
LOC: LC 16:11 → LR 16:36 → 2S 09-14 03:19
PROVIDERS: ADMIT Student in an Organized Health Care Education/Training Program; ATTEND Student in an Organized Health Care Education/Training Program
PROC: 10E0XZZ Delivery of Products of Conception, External Approach (ICD-10-PCS; principal; 2019-09-14)
PROC: 0KQM0ZZ Repair Perineum Muscle, Open Approach (ICD-10-PCS; 2019-09-14)
PROC: 10907ZC Drainage of Amniotic Fluid, Therapeutic from Products of Conception, Via Natural or Artificial Opening (ICD-10-PCS; 2019-09-14)
PROC: 3E02340 Introduction of Influenza Vaccine into Muscle, Percutaneous Approach (ICD-10-PCS; 2019-09-15)
DX: O70.1 Second degree perineal laceration during delivery (principal); Z37.0 Single live birth; O62.2 Other uterine inertia; O77.0 Labor and delivery complicated by meconium in amniotic fluid; Z3A.40 40 weeks gestation of pregnancy
CPT/HCPCS: 36415; 85025; 85027; 86592; 86850; 86900; 86901; 88307; 90686; 90715; J2210; J2590; J3010; J3490